=== PATIENT | male | born 1950 | race Caucasian/White ===

== ENCOUNTER 2017-03-01 11:11 | Inpatient (IN) | payer MEDICARE, OTHER ==
--- NOTE | ~2017-03-01 | DS ---
Discharge Summary [id number] [place]. [address] NAME: ANALIA CHÁVEZ : 46 STATUS : DIS IN PAT#: [id number] AGE: 66 ADM/REG DATE : 03/02/17 MR#: [id number] REPORT SERV DATE: 03/04/17 DICTATED BY: JOLEEN PEDRO DATE: 03/03/17 REPORT STATUS : Draft TRANSCRIBED BY: MODL DATE: 03/03/17 ADMISSION DATE: 03/02/2017 DISCHARGE DATE: 03/03/2017 DISCHARGE DIAGNOSES: 1. Hyperkalemia. 2. Acute kidney injury on chronic kidney disease. 3. Bradycardia, Coreg and spironolactone were discontinued. 4. Coagulopathy with INR 9.7, without active bleeding. The patient's INR is 2.5 at the time of discharge. We are going to cut down his Coumadin down to 4 mg every day. 5. Diabetes mellitus. 6. Obesity. 7. Obstructive sleep apnea. 8. Tobacco abuse. CLASSROOM TECHNOLOGY TECHNICIAN: Michi Reddy M.D. HISTORY OF PRESENT ILLNESS: This is a 66-year-old obese male patient, who does have multiple medical problems. He was directed to go to the emergency room after he was found to have hyperkalemia with an INR being supratherapeutic at 9.7, when he developed subconjunctival hemorrhage. Please see dictated H and P. HOSPITAL COURSE: He was admitted to hospital with observation initially for above discharge diagnoses. Seen by Dr. Reddy. It took more than two midnights to correct his INR and potassium. His Coreg and spironolactone were discontinued, and potassium was corrected. Followed by Dr. Griffin. His blood pressure was controlled with hydralazine since Coreg and spironolactone were discontinued. He tolerated the hospital stay very well. He does not have any problem with hyperkalemia at this point. He is ambulating without any problem. So, the patient will be discharged home with a change of medications. DISCHARGE MEDICATIONS: 1. Stopped the Coreg and spironolactone. Continue to use all other medications. 2. Hydralazine 50 mg twice a day was added on this admission. 3. Coumadin is adjusted down to 4 mg once at nighttime. Other home medications are not changed. DISPOSITION: The patient is discharged to home and we are resuming home health care and also requesting Pro-Time checked in three days after discharge. TIME SPENT: More than 30 minutes. Discharge Summary [address] [place]. [address] NAME: ANALIA CHÁVEZ : 46 STATUS : DIS IN PAT#: [id number] AGE: 66 ADM/REG DATE : 03/02/17 MR#: [id number] REPORT SERV DATE: 03/04/17 DICTATED BY: JOLEEN PEDRO DATE: 03/03/17 REPORT STATUS : Draft TRANSCRIBED BY: MODGómez DATE: 03/03/17 SOPHIA/DARLINE Joleen Pedro M.D. / [id number] CC: Alvarado Ramachandran M.D. Gregory Keith Bruce, M.D.
--- NOTE | ~2017-03-01 | CN ---
Consultation Report [facility] [address] [place]. [address] NAME: WILBERTO HUSSEIN : 46 STATUS : ADM Julissa PAT#: [id number] AGE: 66 ADM/REG DATE : 03/01/17 MR#: [id number] REPORT SERV DATE: 03/02/17 DICTATED BY: MICHI REDDY DATE: 03/01/17 REPORT STATUS : Draft TRANSCRIBED BY: MODL DATE: 03/01/17 CARDIOLOGY CONSULTATION DATE OF CONSULTATION: 03/01/2017 INDICATIONS: Abnormal potassium, bradycardia, and elevated INR. HISTORY OF PRESENT ILLNESS: Wilberto Hussein is a 66-year-old male who was seen in the office of [facility] yesterday. He has a background of atrial fibrillation, unclear from the notes whether this is paroxysmal versus chronic. Last ECG from 2015 is atrial fibrillation. He presents to the ER with overall sense of feeling poorly weak, low energy, and reported bradycardia by a home health nurse. On arrival, he was found to have a potassium of 6, creatinine of 1.7, and an INR of 9.7. He received vitamin K in the emergency room. He felt weak and unwell without active chest pain. He does have some chronic shortness of breath. On arrival, the ECG appeared to possibly represent an ectopic atrial rhythm, although one could not exclude underlying atrial fibrillation versus atrial flutter with heart block. Heart rates are in the 50s. He has received some Kayexalate, and his potassium is down from 6 to 5.7. PAST MEDICAL HISTORY: Atrial fibrillation, history of chronic kidney disease, hypercholesterolemia, BPH, colon cancer with previous colectomy, obesity, MADIE, diabetes, restrictive lung disease, on home oxygen. PRESENT MEDICATIONS: His [facility] home medicine form reviewed. ALLERGIES: IODINE AND DEFINITY. SOCIAL HISTORY: Ongoing smoking. Less than a pack per day but has smoked more heavily in the past. No alcohol. FAMILY HISTORY: Known for CVA and diabetes. REVIEW OF SYSTEMS: As per the HPI. Otherwise, all review of systems is negative. PHYSICAL EXAMINATION: VITAL SIGNS: Blood pressure of systolic 130-189 over diastolics of 50-80, pulse is 57. The patient is afebrile. Respiratory rate 16. Oxygen saturation 96% on room air. GENERAL: Appears stated age, no distress. EYES: Sclerae anicteric, no arcus senilis. MOUTH: Oral mucosa moist, lips acyanotic. NECK: Jugular venous pressure normal, no carotid bruits. LUNGS: Bilateral wheezes. CARDIAC: Regular rhythm. Heart sounds distant. Consultation Report [address] [place]. [address] NAME: WILBERTO HUSSEIN : 46 STATUS : ADM Julissa PAT#: [id number] AGE: 66 ADM/REG DATE : 03/01/17 MR#: [id number] REPORT SERV DATE: 03/02/17 DICTATED BY: MICHI REDDY DATE: 03/01/17 REPORT STATUS : Draft TRANSCRIBED BY: DARLINE DATE: 03/01/17 ABDOMEN: Obese, soft, nontender. EXTREMITIES: Chronic venous stasis changes. SKIN: Warm and dry. NEURO/PSYCH: Alert and oriented, nonfocal, mood appropriate. DATA: Creatinine 1.7, potassium 6, repeated 5.7. Hemoglobin 13.9, INR 9.7. The patient received vitamin K in the emergency room. EKG appears to demonstrate possible ectopic atrial rhythm versus cannot exclude some type of atypical atrial flutter with AV block. No dramatic bradycardia observed today. IMPRESSIONS: 1. Acute kidney injury. 2. Hyperkalemia. 3. Chronic kidney disease. 4. Probable ectopic atrial rhythm. 5. Obesity/obstructive sleep apnea/smoker/restrictive lung disease. 6. Diabetes. 7. Supratherapeutic INR. RECOMMENDATIONS: Hold Coreg. Correct potassium. Discontinue spironolactone. Follow up INR as the patient received vitamin K. As needed dopamine or Isuprel overnight for significant bradycardia. ELIZABETH/DARLINE Michi Reddy M.D. / [id number] CC: Sami Chau MD
--- NOTE | ~2017-03-01 | HP ---
History And Physical [id number] [place]. [address] NAME: ANALIA CHÁVEZ : 46 STATUS : ADM Julissa PAT#: [id number] AGE: 66 ADM/REG DATE : 03/01/17 MR#: [id number] REPORT SERV DATE: 03/01/17 DICTATED BY: JERMAINE PEREZ DATE: 03/01/17 REPORT STATUS : Draft TRANSCRIBED BY: MODL DATE: 03/01/17 DATE OF ADMISSION: 03/01/2017 CHIEF COMPLAINT: Abnormal labs and slow heart rate by Home Health. HISTORY OF PRESENT ILLNESS: The patient is a 66-year-old male with history of AFib, CVA history, morbid obesity, O2 dependent at night for MADIE and CPAP dependent at night, who is being followed by Home Health for chronic venous stasis changes on lower extremities under the care of Dr. Suárez, who did earlier today was noted to be seen by Home Health and found to have INR that was too high to read on their monitor and heart rate in the 40s. Additional HPI symptoms were moderate in severity, constant. The patient did not realize that he was having any issues as he has not had any bleeding. Hemoccult was negative. No pain radiating symptoms. No nausea, vomiting, diarrhea, fever, or chills, did have mild dizziness which were mild, resulting in worsening or relieving the symptoms. Symptoms of elevated INR are still currently present. The patient incidentally was noted to have elevated potassium above 6 on BMP, which has already started having improvement. Due to the patient's ambulatory status, elevated INR, bradycardia with dizziness, and likely need for Kayexalate for hyperkalemia, the patient was recommended for inpatient observation by emergency room staff. REVIEW OF SYSTEMS: For additional review of systems: CONSTITUTIONAL: Noted for dizziness. No fever or chills. EYES: No visual changes or eye pain. ENT: No sinus drainage or congestion. NEURO: No headache or confusion. SKIN: Does have chronic venous stasis in lower extremities with mild rash, but no bruising. RESPIRATORY: No shortness of breath or cough. CV: No chest pain, palpitations but does have bradycardia. GI: No nausea or vomiting. No dark stools. : No dysuria or hematuria. MUSCULOSKELETAL: No myalgias or arthralgias above baseline. ENDO: No fatigue. Heme: Does have mild petechial bleeding at pressure sites including mild bleeding in eye, which is self-sustained. IMMUNOLOGIC: No rhinorrhea. PSYCH: No anxiety or confusion. PAST MEDICAL HISTORY: Chronic diastolic heart failure, EF of 65%, MADIE on CPAP, COPD, CKD 3, morbid obesity, hyperlipidemia, insulin-dependent diabetes 2, gout, colon polyps, AFib on Coumadin, prior CVA, BPH. SURGICAL HISTORY: Colectomy, partial. ALLERGIES: IV CONTRAST, IODINE. History And Physical [address] [address] NAME: ANALIA CHÁVEZ : 46 STATUS : ADM Julissa PAT#: [id number] AGE: 66 ADM/REG DATE : 03/01/17 MR#: [id number] REPORT SERV DATE: 03/01/17 DICTATED BY: JERMAINE PEREZ DATE: 03/01/17 REPORT STATUS : Draft TRANSCRIBED BY: DARLINE DATE: 03/01/17 SOCIAL HISTORY: Occasional smoker, has smoked up to half pack per day in the past. No alcohol or illicits. Lives alone, accompanied by sister. FAMILY HISTORY: Of coronary disease, in siblings. HOME MEDICATIONS: Allopurinol, vitamin B, Coreg, vitamin D, Colcrys, Colace, Lexapro, Neurontin, FlexPen, Levemir, Mag-Ox, pravastatin, Requip, spironolactone, Flomax, Spiriva, Demadex, Coumadin. PHYSICAL EXAMINATION: VITAL SIGNS: Blood pressure 160/57, temperature 98.7, pulse 50, respirations 18, O2 sat 97% on room air. GENERAL: No acute distress. Calm, pleasant, obese. EYES: No scleral icterus, but with mild conjunctival hemorrhage. ENT: Nares patent. Tongue midline. RESPIRATORY: Clear to auscultation. No wheezes. Decreased lung pratt and lower lung pratt. CV: Bradycardic at 50s, irregular, bilateral pedal edema 3+. GI: Soft, nontender, nondistended. Central obesity. : Deferred. MUSCULOSKELETAL: Moves all extremities x4. SKIN: Warm dry, but does have chronic venous stasis changes lower extremities that appear beet red. This is chronic per the patient and family. LYMPH: 2 to 3+ edema bilaterally. HEME: No bleeding or bruising except in eye, mild. NEURO: Alert and oriented. Moves all extremities x4 with symmetrical strength upper and lower extremities. Sensation is still grossly intact although mildly decreased in lower extremities. PSYCH: Appropriate mood and affect. Eager to go home. LABORATORY DATA: EKG initial junctional rhythm with low voltage QRS, incomplete left bundle, rate of 58, QTc of 431. Appears consistent with prior AFib history pattern. CBC: WBC count 4.8, H and H 13.9 and 41.5, platelets 113, INR 9.7. CMP: Sodium 135, potassium 6.0, chloride 102, BUN and creatinine 31 and 1.75, chloride 102, glucose 115, calcium of 9, bili 0.5. LFTs within normal limits. Repeat sodium 136, potassium 5.7, BUN and creatinine 31 and 1.69, glucose 111. ASSESSMENT: 1. Supratherapeutic INR. 2. Bradycardia. 3. Hyperkalemia. 4. Chronic kidney disease. 5. Obstructive sleep apnea. 6. Bilateral chronic venous stasis. 7. Morbid obesity. 8. Diabetes type 2. History And Physical [address] [address] NAME: ANALIA CHÁVEZ : 46 STATUS : ADM Julissa PAT#: [id number] AGE: 66 ADM/REG DATE : 03/01/17 MR#: [id number] REPORT SERV DATE: 03/01/17 DICTATED BY: JERMAINE PEREZ DATE: 03/01/17 REPORT STATUS : Draft TRANSCRIBED BY: DARLINE DATE: 03/01/17 PLAN: 1. For supratherapeutic INR, hold warfarin, given vitamin K in the emergency room. No acute changes and diet have been reported. The patient has been pretty consistent with meals and medications. The patient was seen by Dr. Griffin yesterday and had echocardiogram. 2. Bradycardia, holding beta-radha on additional rupesh agents. Continue monitoring on tele. Heart rate improving currently. 3. Hyperkalemia, Kayexalate. Hold spironolactone, improving, currently on repeat BMP, serial BMPs throughout next 24 hours. 4. CKD, monitor. 5. MADIE CPAP. 6. Bilateral chronic venous stasis. Seen by Home Health at home. We will have Wound Care also evaluate. 7. Morbid obesity. Weight loss as tolerated. 8. Diabetes type 2. Decrease home dose and reassess requirements, currently blood sugars well at goal, has not had any p.o. intake, like to prevent lows and we will decrease current doses. DDN/MODL Jermaine Perez MD / [id number] CC: Jermaine Perez MD
[~2017-03-01 11:11] MED LIST: ACCUNEB INH; ACET500CAP PO; ADVAIR250 INH; AMARYL2 PO; ASAB PO; BACDS PO; BEN25 PO; BUM1 PO; C2 PO; C5 PO; CARD90 PO; CELEXA20 PO; COLCRYS0.6 MG PO; COMBIVENT INH; COREG12 PO; COREG3 PO; COUMADIN10 MG; COUMADIN3 MG PO; COUMADIN4 MG PO; COUMADIN6 MG PO; DEMA100 PO; DEMA20 PO; DSS PO; DURICEF PO; FLOMAX4 PO; FORTAMET500 MG PO; GLUCPH PO; HABIT21 TOP; HALF81 PO; INDAPAMIDE1.25 MG PO; INSNOV7030 SC; INSNOVR SC; KDUR20 PO; KLOR-CON M1010 MEQ PO; KLOR-CON M2020 MEQ; KLOR-CON M2020 MEQ PO; KURIC2 % TOP; L40 PO; L80 PO; LEVAQUIN5T PO; LEVAQUIN750 MG PO; LEVEMFLXPN SC; LEVEMIR SC; LEXAPRO10 PO; MAGOX4 PO; MINERAL OIL TOP; MIRAPEX1.5 MG PO; MO30L TOP; MOBIC15 MG PO; NEUR300 PO; NEUR400 PO; NEUR600 PO; NIZORALCRM TOP; NORV10 PO; NORV5 PO; NOVOLOG SC; NOVOPEN SC; P10 PO; P20 PO; PRAVACHOL40 MG PO; PRIN20; PRIN20 PO; PROVENTSOL INH; REQUIP1 PO; SANTYL250 MG/GM TOP; SILVADENE1 % TOP; SPIRIVA INH; SPIRIVA RESPIMAT INH; SPIRO25 PO; SPIRO50 PO; STRESS600T PO; SUPER B-100 PO; SYMBICORT 160/41 INH INH; TRADJENTA PO; VIB100 PO; VITAMIN B PO; XOPENEX NEBULIZER INH; XOPENEX0.63 MG INH; Z100 PO; Z300 PO; ZESTRIL20 MG PO; ZOL100 PO; ZOL50 PO; [UNRECOGNIZED DRUG - MIXTURE] TOP
[2017-03-01 11:50] LABS: BASOPHILS 0.4 %; BASOPHILS ABSOLUTE 0.02 10/3/uL (0.0-0.16); EOSINOPHILS 3.5 %; EOSINOPHILS ABSOLUTE 0.17 10/3/uL (0.0-0.53); HEMATOCRIT 41.5 % (40.0-51.0); HEMOGLOBIN 13.9 g/dL (13.6-17.8); IMMATURE GRANULOCYTES 0.4 %; IMMATURE GRANULOCYTES ABSOLUTE 0.02 10/3/uL (0.0-0.11); LYMPHOCYTES 22.1 %; LYMPHOCYTES ABSOLUTE 1.07 10/3/uL (0.67-4.30); MANUAL DIFF NO %; MEAN CORPUS HGB CONC 33.5 g/dL (32.0-36.0); MEAN CORPUSCULAR HEMOGLOB 32.6 pg (26.0-34.0); MEAN CORPUSCULAR VOLUME 97.2 fL (80-100); MEAN PLATELET VOLUME 11.9 fL (9.2-13.0); MONOCYTES 7.4 %; MONOCYTES ABSOLUTE 0.36 10/3/uL (0.21-1.20); NEUTROPHILS 66.2 %; PLATELET COUNT 113 10/3/uL (150-400); RBC DISTRIBUTION WIDTH 15.6 % (12.0-16.0); RED CELL COUNT 4.27 10/6/uL (4.7-6.1); WHITE BLOOD CELLS 4.8 10/3/uL (4.5-10.5)
[2017-03-01 12:01] LABS: INTERNATIONAL NORMAL RATI 9.7 UNITS (-); PROTIME (NOT ORD) 77.1 SEC (12.0-14.5)
[2017-03-01 13:45] LABS: A/G RATIO 0.8 (0.7-1.9); ALBUMIN 3.3 G/DL (3.5-5.0); CHLORIDE, SERUM 102 MMOL/L (96-112); CO2 (CARBON DIOXIDE) 29 MMOL/L (24-34); CREATININE 1.75 MG/DL (0.70-1.30); GFR AFRICAN AMERICAN 45 ML/MIN (>=60); GFR NON AFRICAN AMERICAN 39 ML/MIN (>=60); GLOBULIN 4.2 G/DL (2.5-4.1); SGPT(ALT) 20 U/L (5-65); SODIUM, SERUM 135 MMOL/L (135-148); TOTAL BILIRUBIN 0.5 MG/DL (0-1.2); TOTAL PROTEIN 7.5 G/DL (6.0-8.5)
[2017-03-01 13:47] LABS: ALKALINE PHOSPHATASE 72 U/L (45-117); BUN (BLOOD UREA NITROGEN) 31 MG/DL (6-23); GLUCOSE, SERUM 115 MG/DL (60-99)
[2017-03-01 13:48] LABS: SGOT(AST) 37 U/L (5-40)
[2017-03-01] MEDS ORDERED: COREG3 PO (14:21)
[2017-03-01] MEDS ORDERED: VITAMIN D1000 UNI1 PO (14:25)
[2017-03-01 14:27] LABS: BUN (BLOOD UREA NITROGEN) 31 MG/DL (6-23); CALCIUM, SERUM 8.9 MG/DL (8.5-10.4); CHLORIDE, SERUM 103 MMOL/L (96-112); CO2 (CARBON DIOXIDE) 27 MMOL/L (24-34); CREATININE 1.69 MG/DL (0.70-1.30); GFR AFRICAN AMERICAN 47 ML/MIN (>=60); GFR NON AFRICAN AMERICAN 41 ML/MIN (>=60); GLUCOSE, SERUM 111 MG/DL (60-99); SODIUM, SERUM 136 MMOL/L (135-148)
[2017-03-01 14:32] LABS: POTASSIUM, SERUM 5.7 MMOL/L (3.5-5.3)
[2017-03-01 22:13] LABS: BUN (BLOOD UREA NITROGEN) 31 MG/DL (6-23); CALCIUM, SERUM 9.2 MG/DL (8.5-10.4); CHLORIDE, SERUM 103 MMOL/L (96-112); CO2 (CARBON DIOXIDE) 26 MMOL/L (24-34); CREATININE 1.67 MG/DL (0.70-1.30); GFR AFRICAN AMERICAN 48 ML/MIN (>=60); GFR NON AFRICAN AMERICAN 41 ML/MIN (>=60); GLUCOSE, SERUM 235 MG/DL (60-99); POTASSIUM, SERUM 5.5 MMOL/L (3.5-5.3); SODIUM, SERUM 137 MMOL/L (135-148); TROPONIN I <0.02 NG/ML (<0.05)
[2017-03-02 05:32] LABS: BASOPHILS 0.2 %; BASOPHILS ABSOLUTE 0.01 10/3/uL (0.0-0.16); EOSINOPHILS 3.1 %; EOSINOPHILS ABSOLUTE 0.14 10/3/uL (0.0-0.53); HEMATOCRIT 40.4 % (40.0-51.0); HEMOGLOBIN 13.5 g/dL (13.6-17.8); IMMATURE GRANULOCYTES 0.2 %; IMMATURE GRANULOCYTES ABSOLUTE 0.01 10/3/uL (0.0-0.11); LYMPHOCYTES 20.5 %; LYMPHOCYTES ABSOLUTE 0.93 10/3/uL (0.67-4.30); MEAN CORPUS HGB CONC 33.4 g/dL (32.0-36.0); MEAN CORPUSCULAR HEMOGLOB 32.5 pg (26.0-34.0); MEAN CORPUSCULAR VOLUME 97.1 fL (80-100); MEAN PLATELET VOLUME 11.4 fL (9.2-13.0); MONOCYTES 9.1 %; MONOCYTES ABSOLUTE 0.41 10/3/uL (0.21-1.20); NEUTROPHILS 66.9 %; NEUTROPHILS ABSOLUTE 3.03 10/3/uL (2.02-8.40); PLATELET COUNT 100 10/3/uL (150-400); RBC DISTRIBUTION WIDTH 15.3 % (12.0-16.0); RED CELL COUNT 4.16 10/6/uL (4.7-6.1); WHITE BLOOD CELLS 4.5 10/3/uL (4.5-10.5)
[2017-03-02 05:37] LABS: INTERNATIONAL NORMAL RATI 4.5 UNITS (-)
[2017-03-02 05:39] LABS: MANUAL DIFF NO %
[2017-03-02 05:50] LABS: PROTIME (NOT ORD) 42.2 SEC (12.0-14.5)
[2017-03-02 05:58] LABS: BUN (BLOOD UREA NITROGEN) 31 MG/DL (6-23); CALCIUM, SERUM 9.3 MG/DL (8.5-10.4); CHLORIDE, SERUM 105 MMOL/L (96-112); CO2 (CARBON DIOXIDE) 26 MMOL/L (24-34); CREATININE 1.69 MG/DL (0.70-1.30); GFR AFRICAN AMERICAN 47 ML/MIN (>=60); GFR NON AFRICAN AMERICAN 41 ML/MIN (>=60); POTASSIUM, SERUM 5.5 MMOL/L (3.5-5.3); SODIUM, SERUM 138 MMOL/L (135-148); TROPONIN I <0.02 NG/ML (<0.05)
[2017-03-02 05:59] LABS: GLUCOSE, SERUM 184 MG/DL (60-99)
[2017-03-03 04:29] LABS: BASOPHILS 0.4 %; BASOPHILS ABSOLUTE 0.02 10/3/uL (0.0-0.16); EOSINOPHILS 3.1 %; EOSINOPHILS ABSOLUTE 0.15 10/3/uL (0.0-0.53); HEMOGLOBIN 13.1 g/dL (13.6-17.8); IMMATURE GRANULOCYTES 0.2 %; IMMATURE GRANULOCYTES ABSOLUTE 0.01 10/3/uL (0.0-0.11); LYMPHOCYTES 21.8 %; LYMPHOCYTES ABSOLUTE 1.04 10/3/uL (0.67-4.30); MEAN CORPUS HGB CONC 33.6 g/dL (32.0-36.0); MEAN CORPUSCULAR HEMOGLOB 32.3 pg (26.0-34.0); MEAN CORPUSCULAR VOLUME 96.3 fL (80-100); MEAN PLATELET VOLUME 11.3 fL (9.2-13.0); MONOCYTES ABSOLUTE 0.43 10/3/uL (0.21-1.20); NEUTROPHILS 65.5 %; NEUTROPHILS ABSOLUTE 3.12 10/3/uL (2.02-8.40); PLATELET COUNT 102 10/3/uL (150-400); RBC DISTRIBUTION WIDTH 15.1 % (12.0-16.0); RED CELL COUNT 4.05 10/6/uL (4.7-6.1); WHITE BLOOD CELLS 4.8 10/3/uL (4.5-10.5)
[2017-03-03 04:33] LABS: MANUAL DIFF NO %
[2017-03-03 04:38] LABS: INTERNATIONAL NORMAL RATI 2.5 UNITS (-); PROTIME (NOT ORD) 26.4 SEC (12.0-14.5)
[2017-03-03 04:46] LABS: BUN (BLOOD UREA NITROGEN) 38 MG/DL (6-23); CALCIUM, SERUM 8.9 MG/DL (8.5-10.4); CHLORIDE, SERUM 98 MMOL/L (96-112); CO2 (CARBON DIOXIDE) 29 MMOL/L (24-34); CREATININE 1.92 MG/DL (0.70-1.30); GFR AFRICAN AMERICAN 41 ML/MIN (>=60); GFR NON AFRICAN AMERICAN 35 ML/MIN (>=60); GLUCOSE, SERUM 171 MG/DL (60-99); POTASSIUM, SERUM 4.4 MMOL/L (3.5-5.3); SODIUM, SERUM 133 MMOL/L (135-148)
[2017-03-03] MEDS ORDERED: COUMADIN4 MG PO (13:16)
== END 2017-03-03 13:37 | disposition home health service (06) | DRG 683 ==
LOC: ER 11:11 → CDU1 15:52 → CDU2 16:38
PROVIDERS: Emergency Medicine; Hospitalist; Internal Medicine Cardiovascular Disease; Student in an Organized Health Care Education/Training Program
DX: N17.9 Acute kidney failure, unspecified (principal); I50.32 Chronic diastolic (congestive) heart failure; E11.22 Type 2 diabetes mellitus with diabetic chronic kidney disease; I13.0 Hypertensive heart and chronic kidney disease with heart failure and stage 1 through stage 4 chronic kidney disease, or unspecified chronic kidney disease; I48.4 Atypical atrial flutter; Z99.81 Dependence on supplemental oxygen; I48.0 Paroxysmal atrial fibrillation; Z68.41 Body mass index [BMI] 40.0-44.9, adult; E87.5 Hyperkalemia; R00.1 Bradycardia, unspecified; G47.33 Obstructive sleep apnea (adult) (pediatric); E66.01 Morbid (severe) obesity due to excess calories; F17.210 Nicotine dependence, cigarettes, uncomplicated; J45.909 Unspecified asthma, uncomplicated; N18.2 Chronic kidney disease, stage 2 (mild); N40.0 Benign prostatic hyperplasia without lower urinary tract symptoms; T45.515A Adverse effect of anticoagulants, initial encounter; E78.00 Pure hypercholesterolemia, unspecified; Z90.49 Acquired absence of other specified parts of digestive tract; Z91.041 Radiographic dye allergy status; Z83.3 Family history of diabetes mellitus; Z82.3 Family history of stroke; Z79.01 Long term (current) use of anticoagulants
CPT/HCPCS: 80048; 80053; 82962; 83735; 84443; 84484; 85025; 85610; 93005; 93306; 99285; A9270-GY; G0463; J0360